=== PATIENT | female | born 1950 | race Two or more races ===

== ENCOUNTER 2019-02-08 11:33 | Outpatient (CLI) | payer OTHER | END 2019-02-08 11:37 | disposition home or self-care (01) | LOC: SONOGRAMA 11:33 | DX: E03.8 Other specified hypothyroidism (principal); E04.2 Nontoxic multinodular goiter ==

== ENCOUNTER 2019-03-18 10:59 | Outpatient (CLI) | payer OTHER | END 2019-03-18 11:05 | disposition home or self-care (01) | LOC: SONOGRAMA 10:59 | DX: E04.1 Nontoxic single thyroid nodule (principal) ==

== ENCOUNTER → 2019-03-20 | Outpatient (CLI) | payer OTHER | END | disposition home or self-care (01) | LOC: RAD 15:36 | DX: M23.261 Derangement of other lateral meniscus due to old tear or injury, right knee (principal); M17.11 Unilateral primary osteoarthritis, right knee ==

== ENCOUNTER 2019-04-05 09:31 | Emergency (ER) | payer OTHER ==
[~2019-04-05] VITALS: Ht 162.6 cm; Wt 63.5 kg
== END 2019-04-05 12:02 | disposition home or self-care (01) ==
LOC: ER 09:31
DX: S80.01XA Contusion of right knee, initial encounter (principal); W22.8XXA Striking against or struck by other objects, initial encounter; Y93.89 Activity, other specified; Y92.89 Other specified places as the place of occurrence of the external cause; Y99.8 Other external cause status

== ENCOUNTER → 2019-06-23 | Outpatient (CLI) | payer OTHER | END | disposition home or self-care (01) | LOC: MAMO-SONO 11:01 | DX: Z12.31 Encounter for screening mammogram for malignant neoplasm of breast (principal); Z87.898 Personal history of other specified conditions; N63.10 Unspecified lump in the right breast, unspecified quadrant; N63.20 Unspecified lump in the left breast, unspecified quadrant; N64.4 Mastodynia ==

== ENCOUNTER → 2020-04-05 | Outpatient (CLI) | payer OTHER | END | disposition home or self-care (01) | LOC: RAD 14:23 | DX: I70.0 Atherosclerosis of aorta (principal) ==

== ENCOUNTER 2020-09-22 12:03 | Outpatient (CLI) | payer OTHER | END 2020-09-22 12:14 | disposition home or self-care (01) | LOC: MAMO-SONO 12:03 | PROVIDERS: ATTEND Obstetrics & Gynecology | DX: Z12.31 Encounter for screening mammogram for malignant neoplasm of breast (principal); Z87.898 Personal history of other specified conditions; N63.0 Unspecified lump in unspecified breast; N64.4 Mastodynia ==

== ENCOUNTER 2021-10-05 12:40 | Outpatient (CLI) | payer OTHER | END 2021-10-05 12:54 | disposition home or self-care (01) | LOC: MAMO-SONO 12:40 | PROVIDERS: ATTEND Obstetrics & Gynecology | DX: Z12.31 Encounter for screening mammogram for malignant neoplasm of breast (principal); N60.11 Diffuse cystic mastopathy of right breast; N60.12 Diffuse cystic mastopathy of left breast ==

== ENCOUNTER 2023-01-10 11:34 | Outpatient (CLI) | payer OTHER | END 2023-01-10 11:37 | disposition home or self-care (01) | LOC: MAMO-SONO 11:34 | PROVIDERS: ATTEND Obstetrics & Gynecology | DX: N63.0 Unspecified lump in unspecified breast (principal); N64.4 Mastodynia; Z12.31 Encounter for screening mammogram for malignant neoplasm of breast ==

== ENCOUNTER 2024-06-11 11:52 | Outpatient (CLI) | payer OTHER | END 2024-06-11 12:07 | disposition home or self-care (01) | LOC: MAMO-SONO 11:52 | PROVIDERS: ATTEND Obstetrics & Gynecology | DX: N63.0 Unspecified lump in unspecified breast (principal); N64.4 Mastodynia; Z12.31 Encounter for screening mammogram for malignant neoplasm of breast ==

== ENCOUNTER 2024-10-21 10:22 | Outpatient (CLI) | payer OTHER | END 2024-10-21 10:24 | disposition home or self-care (01) | LOC: SONOGRAMA 10:22 | PROVIDERS: ATTEND Internal Medicine Cardiovascular Disease | DX: R80.9 Proteinuria, unspecified (principal) ==